=== PATIENT | male | born 1995 | race Caucasian/White ===

== ENCOUNTER 2016-04-25 00:53 | Emergency (ER) | payer BC ==
[2016-04-25] MEDS ORDERED: Ondansetron INJ* 2 MG/ML VIAL IV ONE (02:01)
[2016-04-25] MEDS: NS 0.9% 1000 ML* 2,000 ML IV ONE ×2 (02:12→02:13)
[2016-04-25 02:16] LABS: Hematocrit 41 % (42-52); Hemoglobin 13.9 g/dl (14.0-18.0); Mean Corpuscular HGB Conc 34 g/dl (31-36); Mean Corpuscular Hemoglobin 30 pg (27-31); Mean Corpuscular Volume 89 fL (80-94); Mean Platelet Volume 9 um3 (7.4-10.4); Red Blood Count 4.63 10^6/ul (4.0-5.4); Red Cell Distribution Width 13 % (10.5-15); White Blood Count 9.1 10^3/ul (3.5-10.8)
[2016-04-25 02:32] LABS: Calcium 9.3 mg/dL (8.6-10.3); EGFR African American 102.3 (>60); EGFR Non-African American 79.5 (>60); Globulin 2.5 g/dL (2-4); Potassium 3.6 mmol/L (3.5-5.0); Total Bilirubin 0.6 mg/dL (0.2-1.0); Total Protein 7.5 g/dL (6.4-8.9)
--- NOTE | 2016-04-25 04:29 | ED ---
Jose Daugherty Aidan, scribed for Josiah Carter on 04/25/16 at 0228 . Substance Abuse/Use - HPI Summary HPI Summary: 20 y/o male presents to the ED with a complaint of an acute, constant, moderate [place] and acute, constant, moderate nausea that resulted from him drinking too much vodka today. Associated symptoms include vomiting. - History Of Current Complaint Chief Complaint: EDSubstanceAbuse Stated Complaint: DEHYDRATION/ALCOHOL CONSUMPTION Time Seen by Provider: 04/25/16 01:48 Hx Obtained From: Patient Onset/Duration of Drug/ETOH Abuse: Hours Ingestion History: Type/Name Of Drug - alcohol (vodka) Overdose Characteristics: Oral - drank too much Timing Of Abuse: Binge Use - yesterday Severity Initially: Moderate Severity Currently: Moderate Character: Other - affect and mood are appropriate, however, the patient is nauseous and has a SALVADOR Aggravating Factor(s): Other - drinking alcohol Alleviating Factor(s): Other - unknown Associated Signs And Symptoms: Nausea, Vomiting, Other: - SALVADOR - Risk Factor(s) Completed Suicide Risk Factors: Male, White Serbian, Living Alone - Allergies/Home Medications Allergies/Adverse Reactions: Allergies Allergy/AdvReac Type Severity Reaction Status Date / Time No Known Allergies Allergy Verified 09/30/14 08:06 PMH/Surg Hx/FS Hx/Imm Hx History: Reports: Other Problems/Disorders - LEFT VARICOCELE Sensory History: Denies: Hx Contacts or Glasses, Hx Hearing Aid Opthamlomology History: Denies: Hx Contacts or Glasses Psychiatric History: Reports: Hx Anxiety - NO MEDS - Surgical History Surgery Procedure, Year, and Place: 2003 INCISION AND DRAINAGE UPPER LIP/SEPTAL ABSCESS, [facility] [place] Hx Anesthesia Reactions: No Infectious Disease History: No Infectious Disease History: Denies: Traveled Outside the [place] in Last 30 Days - Family History Known Family History: Positive: Hypertension - Social History Occupation: Employed Full-time Lives: Alone Alcohol Use: Occasionally Alcohol Amount: SOCIALLY Substance Use Type: Reports: None Substance Use Comment - Amount & Last Used: LAST TIME ABOUT 1 MONTH AGO Smoking Status (MU): Never Smoked Tobacco Review of Systems Constitutional: Negative Eyes: Negative ENT: Negative Cardiovascular: Negative Respiratory: Negative Positive: Vomiting, Nausea Genitourinary: Negative Musculoskeletal: Negative Skin: Negative Positive: Headache Psychological: Normal All Other Systems Reviewed And Are Negative: Yes Physical Exam Triage Information Reviewed: Yes Vital Signs On Initial Exam: Initial Vitals Temp Pulse Resp BP Pulse Ox 98.6 F 86 18 130/92 99 04/25/16 00:57 04/25/16 00:57 04/25/16 00:57 04/25/16 00:57 04/25/16 00:57 Vital Signs Reviewed: Yes Appearance: Positive: Well-Appearing, No Pain Distress Skin: Positive: Warm, Skin Color Reflects Adequate Perfusion, Dry Head/Face: Positive: Normal Head/Face Inspection Eyes: Positive: EOMI, HALEY ENT: Positive: Normal ENT inspection Neck: Positive: Supple, Nontender Respiratory/Lung Sounds: Positive: Clear to Auscultation, Breath Sounds Present Cardiovascular: Positive: RRR, Pulses are Symmetrical in both Upper and Lower Extremities Abdomen Description: Positive: Nontender, Soft Bowel Sounds: Positive: Present Musculoskeletal: Positive: Strength/ROM Intact Neurological: Positive: Sensory/Motor Intact, Alert, Oriented to Person Place, Time Psychiatric: Positive: Affect/Mood Appropriate AVPU Assessment: Alert - Sargent Coma Scale Coma Scale Total: 15 Diagnostics - Vital Signs Vital Signs Temp Pulse Resp BP Pulse Ox 04/25/16 02:00 65 97 04/25/16 00:57 98.6 F 86 18 130/92 99 - Laboratory Lab Results: Lab Results 04/25/16 Range/Units 02:10 WBC 9.1 (3.5-10.8) 10^3/ul RBC 4.63 (4.0-5.4) 10^6/ul Hgb 13.9 L (14.0-18.0) g/dl Hct 41 L (42-52) % MCV 89 (80-94) fL MCH 30 (27-31) pg MCHC 34 (31-36) g/dl RDW 13 (10.5-15) % Plt Count 233 (150-450) 10^3/ul MPV 9 (7.4-10.4) um3 Neut % (Auto) 71.8 (38-83) % Lymph % (Auto) 22.2 L (25-47) % Lincoln % (Auto) 4.8 (1-9) % Eos % (Auto) 0.6 (0-6) % Baso % (Auto) 0.6 (0-2) % Absolute Neuts (auto) 6.5 (1.5-7.7) 10^3/ul Absolute Lymphs (auto) 2.0 (1.0-4.8) 10^3/ul Absolute Monos (auto) 0.4 (0-0.8) 10^3/ul Absolute Eos (auto) 0.1 (0-0.6) 10^3/ul Absolute Basos (auto) 0.1 (0-0.2) 10^3/ul Absolute Nucleated RBC 0 10^3/ul Nucleated RBC % 0 Result Diagrams: 04/25/16 02:10 04/25/16 02:10 Lab Statement: Any lab studies that have been ordered have been reviewed, and results considered in the medical decision making process. Course/Dx - Course Course Of Treatment: This is a 20 y/o male who presents with a SALVADOR and nausea. Yesterday, he drank too much vodka. - Diagnoses Provider Diagnoses: Alcohol intoxication Discharge - Discharge Plan Condition: Stable Disposition: HOME Discharge Disposition Comment: Please follow up with your primary care physician. Patient Education Materials: Alcohol Intoxication (ED) Referrals: Mabel Archer MD [Primary Care Provider] - The documentation as recorded by the Jose bell Aidan accurately reflects the service I personally performed and the decisions made by , Josiah Carter.
[2016-04-25 05:29] VITALS: BP 93/67
== END 2016-04-25 04:55 | disposition home or self-care (01) ==
LOC: ED 00:53
DX: F10.129 Alcohol abuse with intoxication, unspecified (principal); R11.2 Nausea with vomiting, unspecified; R51 Headache
CPT/HCPCS: 36415; 80053; 80320; 83690; 85025; 96374; 99283; G0480; J2405

== ENCOUNTER 2016-09-14 20:56 | Emergency (ER) | payer BC ==
--- NOTE | 2016-09-14 21:40 | RAD ---
HISTORY: Left ankle pain COMPARISONS: None VIEWS: 3, Frontal, lateral, and oblique views of the left ankle FINDINGS: BONE DENSITY: Normal. BONES: There is no displaced fracture. JOINTS: There is no arthropathy. ALIGNMENT: There is no dislocation. SOFT TISSUES: There is soft tissue swelling over the lateral malleolus OTHER FINDINGS: None. IMPRESSION: SOFT TISSUE SWELLING. NO ACUTE OSSEOUS INJURY. IF SYMPTOMS PERSIST, RECOMMEND REPEAT IMAGING.
--- NOTE | 2016-09-14 21:42 | ED ---
Lower Extremity - HPI Summary HPI Summary: 21M presents with left ankle injury today s/p rolling ankle. He inverted the ankle and has pain on the lateral aspect of his ankle. He has been able to ambulate with pain. He admits to edema of the area. He has not taken anything for pain. He denies any numbness or tingling. He denies any previous injury to the area. - History of Current Complaint Chief Complaint: EDExtremityLower Stated Complaint: LT ANKLE INJURY Time Seen by Provider: 09/14/16 21:06 Pain Intensity: 9 - Allergies/Home Medications Allergies/Adverse Reactions: Allergies Allergy/AdvReac Type Severity Reaction Status Date / Time No Known Allergies Allergy Verified 09/30/14 08:06 PMH/Surg Hx/FS Hx/Imm Hx Endocrine/Hematology History: Denies: Hx Anticoagulant Therapy Respiratory History: Denies: Hx Asthma History: Reports: Other Problems/Disorders - LEFT VARICOCELE Sensory History: Denies: Hx Contacts or Glasses, Hx Hearing Aid Opthamlomology History: Denies: Hx Contacts or Glasses Psychiatric History: Reports: Hx Anxiety - NO MEDS - Surgical History Surgery Procedure, Year, and Place: 2002 INCISION AND DRAINAGE UPPER LIP/SEPTAL ABSCESS, [facility] Hx Anesthesia Reactions: No Infectious Disease History: Denies: Traveled Outside the [place] in Last 30 Days - Family History Known Family History: Positive: Hypertension - Social History Alcohol Use: Occasionally Alcohol Amount: SOCIALLY Substance Use Type: Reports: None Substance Use Comment - Amount & Last Used: LAST TIME ABOUT 1 MONTH AGO Smoking Status (MU): Never Smoked Tobacco Review of Systems Negative: Fever Negative: Chest Pain Negative: Shortness Of Breath Positive: Myalgia - left ankle pain All Other Systems Reviewed And Are Negative: Yes Physical Exam Triage Information Reviewed: Yes Vital Signs On Initial Exam: Initial Vitals Temp Pulse Resp BP Pulse Ox 98 F 78 16 137/66 96 09/14/16 20:58 09/14/16 20:58 09/14/16 20:58 09/14/16 20:58 09/14/16 20:58 Vital Signs Reviewed: Yes Appearance: Positive: Well-Appearing Skin: Positive: Warm, Dry Head/Face: Positive: Normal Head/Face Inspection Eyes: Positive: Normal, Conjunctiva Clear Respiratory/Lung Sounds: Positive: Clear to Auscultation, Breath Sounds Present Cardiovascular: Positive: Normal, RRR Musculoskeletal: Positive: Strength/ROM Intact - toes, Limited @ - ankle, Edema Left - ankle, Other - good pulses, tender on lateral aspect of ankle, capillary refill < 2 secs, sensation grossly intact Diagnostics - Vital Signs Vital Signs Temp Pulse Resp BP Pulse Ox 09/14/16 20:58 98 F 78 16 137/66 96 - Laboratory Lab Statement: Any lab studies that have been ordered have been reviewed, and results considered in the medical decision making process. - Radiology ankle Xray Interpretation: No Acute Changes - IMPRESSION: SOFT TISSUE SWELLING. NO ACUTE OSSEOUS INJURY. IF SYMPTOMS PERSIST, RECOMMEND REPEAT IMAGING. Radiology Interpretation Completed By: Radiologist Lower Extremity Course/Dx - Course Course Of Treatment: 21M presents with left ankle pain s/p rolling it today. able to ambulate on it. admits to edema, tender over lateral malleolus. xray no fracture. will treat as sprain, RICE and crutches. patient understands and agrees with plan - Diagnoses Differential Diagnosis/HQI/PQRI: Positive: Fracture (Closed), Sprain, Strain Provider Diagnoses: Left ankle injury Discharge - Discharge Plan Condition: Good Disposition: HOME Patient Education Materials: Ankle Sprain (ED) Referrals: Mabel Archer MD [Primary Care Provider] - Additional Instructions: Stay off ankle as much as possible Ice, elevate, keep in RYAN Ibuprofen every 6 hours for pain Follow up with primary if no improvement Return to ED if develop any numbness or tingling or any new or worsening symptoms
[2016-09-14] MEDS ORDERED: Ibuprofen TAB* 600 MG PO ONE (21:46)
[2016-09-14 21:59] VITALS: BP 126/59
== END 2016-09-14 22:01 | disposition home or self-care (01) ==
LOC: ED 20:56
DX: S99.912A Unspecified injury of left ankle, initial encounter (principal); X58.XXXA Exposure to other specified factors, initial encounter; Y93.9 Activity, unspecified; Y92.9 Unspecified place or not applicable; Y99.9 Unspecified external cause status
CPT/HCPCS: 99282; A9270-GY

== ENCOUNTER 2016-11-01 22:52 | Emergency (ER) | payer BC ==
[2016-11-01 23:03] VITALS: BP 140/88
--- NOTE | 2016-11-02 00:12 | ED ---
Jamshid Daugherty Alok, scribed for Brett Hopkins MD on 11/01/16 at 2335 . Neurological HPI - HPI Summary HPI Summary: 21M presents to the ED for left arm unresponsiveness and SALVADOR. Pt states that he was playing basketball one hour ago when suddenly he could not move his left arm stating "it would not cooperate". Pt also noted feeling through tightness and a facial drop and states that these symptoms lasted for an hour before spontaneously resolving. Pt states that his SALVADOR which began after the episode is still present. Pt states he has never had these symptoms before. Pt denies fever /chills. Pt denies weakness of the lower extremities. - History of Current Complaint Chief Complaint: EDNeurologicalDeficit Stated Complaint: LEFT ARM NUMBNESS,THROAT TIGHTNESS Time Seen by Provider: 11/01/16 23:25 Hx Obtained From: Patient Onset/Duration: Started hours ago, Resolved Timing: Intermittent Episodes Lasting: - one hour Onset Severity: Moderate Current Severity: Moderate Neurological Deficit Location: LUE Pain Intensity: 6 Pain Scale Used: 0-10 Numeric Character: Motor Weakness Episode Lasting: Hours Syncope Context: Witnessed, Loss of Consciousness: No, Exertion Aggravating: Nothing Alleviating: Spontanious Resolution Associated Signs and Symptoms: Positive: Headache, Weakness, Nothing - facial drooping. Negative: Loss of Consciousness, Fever - Allergy/Home Medications Allergies/Adverse Reactions: Allergies Allergy/AdvReac Type Severity Reaction Status Date / Time No Known Allergies Allergy Verified 09/30/14 08:06 PMH/Surg Hx/FS Hx/Imm Hx Endocrine/Hematology History: Denies: Hx Anticoagulant Therapy Respiratory History: Denies: Hx Asthma History: Reports: Other Problems/Disorders - LEFT VARICOCELE Sensory History: Denies: Hx Contacts or Glasses, Hx Hearing Aid Opthamlomology History: Denies: Hx Contacts or Glasses Psychiatric History: Reports: Hx Anxiety - NO MEDS - Surgical History Surgery Procedure, Year, and Place: 2003 INCISION AND DRAINAGE UPPER LIP/SEPTAL ABSCESS, [facility] Hx Anesthesia Reactions: No Infectious Disease History: No Infectious Disease History: Denies: Traveled Outside the [place] in Last 30 Days - Family History Known Family History: Positive: Hypertension - Social History Occupation: Unemployed Lives: With Family Alcohol Use: Occasionally Alcohol Amount: SOCIALLY Substance Use Type: Reports: None Substance Use Comment - Amount & Last Used: LAST TIME ABOUT 1 MONTH AGO Smoking Status (MU): Never Smoked Tobacco Review of Systems Negative: Fever, Chills Positive: Other - facial droop, throat tightening Positive: Headache, Weakness All Other Systems Reviewed And Are Negative: Yes Physical Exam Triage Information Reviewed: Yes Vital Signs On Initial Exam: Initial Vitals Temp Pulse Resp BP Pulse Ox 98.8 F 68 15 140/88 98 11/01/16 23:02 11/01/16 23:02 11/01/16 23:02 11/01/16 23:02 11/01/16 23:02 Vital Signs Reviewed: Yes Appearance: Positive: Well-Appearing, No Pain Distress Skin: Positive: Warm Head/Face: Positive: Normal Head/Face Inspection Eyes: Positive: EOMI, HALEY ENT: Positive: Hearing grossly normal Neck: Positive: Supple, Nontender Respiratory/Lung Sounds: Positive: Clear to Auscultation, Breath Sounds Present Cardiovascular: Positive: RRR Abdomen Description: Positive: Nontender, Soft Bowel Sounds: Positive: Present Musculoskeletal: Positive: Strength/ROM Intact Neurological: Positive: Sensory/Motor Intact, CN Intact II-III, Normal Gait Psychiatric: Positive: Affect/Mood Appropriate - [place] Coma Scale Best Eye Response: 4 - Spontaneous Best Motor Response: 6 - Obeys Commands Best Verbal Response: 5 - Oriented Diagnostics - Vital Signs Vital Signs Temp Pulse Resp BP Pulse Ox 11/01/16 23:02 98.8 F 68 15 140/88 98 - Laboratory Lab Statement: Any lab studies that have been ordered have been reviewed, and results considered in the medical decision making process. - CT Brain CT CT Interpretation: Positive (See Comments) - IMPRESSION: Normal Exam CT Interpretation Completed By: Radiologist NIH Scale - NIH Scale Level of Consciousness: Alert/Keenly Responsive Ask Patient the Month and His/Her Age: Both Correct Ask Pt to Open/Close Eyes and Public Utilities Sales Representative/Release Non-Paretic Hand: Both Correctly Best Gaze (Only Horizontal Eye Movement): Normal Visual Field Testing: No Visual Loss Facial Paresis-Pt to Smile & Close Eyes or Grimace Symmetry: Normal/Symmetrical Motor Function - Right Arm: No Drift-Holds 10 Seconds Motor Function - Left Arm: No Drift-Holds 10 Seconds Motor Function - Right Leg: No Drift-Holds 10 Seconds Motor Function - Left Leg: No Drift-Holds 10 Seconds Limb Ataxia-Must be out of Proportion to Weakness Present: Absent Sensory (Use Pinprick to Test Arms/Legs/Trunk/Face): Normal Best Language (Describe Picture, Name Items): No Aphasia Dysarthria (Read Several Words): Normal Extinction and Inattention: No Abnormality Total Score: 0 Re-Evaluation - Re-Evaluation First Eval Comment: results d/w pt Course/Dx - Diagnoses Provider Diagnoses: Headache Discharge - Discharge Plan Condition: Improved Disposition: HOME Patient Education Materials: Paresthesia (ED), General Headache (ED) Referrals: Mabel Archer MD [Primary Care Provider] - The documentation as recorded by the Jamshid bell Alok accurately reflects the service I personally performed and the decisions made by me, Brett Hopkins MD.
--- NOTE | 2016-11-02 07:54 | RAD ---
INDICATION: Headache left arm weakness and "feels spacey" COMPARISON: Similar examination March 01, 2015 TECHNIQUE: Contiguous axial sections of the brain were obtained from the skull base to the vertex without contrast. FINDINGS: The ventricles, cisterns and sulci are within normal limits. The jackson-white matter differentiation is adequately maintained and there is no sulcal effacement. No significant focal abnormality or mass effect is present. There is no evidence for intracranial hemorrhage. No significant focal osseous abnormality is present. The visualized portion of the paranasal sinuses and mastoid air cells appear clear. IMPRESSION: Normal CT of the brain.
== END 2016-11-02 00:37 | disposition home or self-care (01) ==
LOC: ED 22:52
DX: R51 Headache (principal); R53.1 Weakness; R55 Syncope and collapse
CPT/HCPCS: 70450; 99282